=== PATIENT | female | born 1950 | race African-American/Black ===

== ENCOUNTER → 2019-01-15 | Outpatient (CLI) | payer MEDICARE, MEDICAID ==
[2019-01-15 14:46] LABS: FERRITIN 35.2 ng/mL (11.1-264.0)
[2019-01-16 07:42] LABS: HEPATITIS A AB IGM Negative (Negative); HEPATITIS B CORE AB IGM Negative (Negative); HEPATITS B SURFACE ANTIGEN Negative (Negative)
[2019-01-16 10:28] LABS: HEPATITIS C VIRUS ANTIBODY <0.1 s/co ratio (0.0-0.9)
[2019-01-16 14:55] LABS: ANTINUCLEAR ANTIBODIES Negative (Negative)
== END ==
LOC: OD 12:50
PROVIDERS: ATTEND Internal Medicine Gastroenterology
DX: I77.6 Arteritis, unspecified (principal); R71.8 Other abnormality of red blood cells; R76.8 Other specified abnormal immunological findings in serum; R94.5 Abnormal results of liver function studies
CPT/HCPCS: 36415; 80074; 82390; 82728; 83540; 86038; 86256

== ENCOUNTER → 2019-03-01 | Outpatient (CLI) | payer MEDICARE, MEDICAID ==
--- NOTE | 2019-03-01 16:22 | RADIOLOGY REPORT (SQ) ---
EXAM DESCRIPTION: CHEST PA/LATERAL COMPLETED DATE/TIME: 03/01/2019 4:00 pm REASON FOR STUDY: COUGH COMPARISON: None. EXAM PARAMETERS: NUMBER OF VIEWS: two views TECHNIQUE: Digital Frontal and Lateral radiographic views of the chest acquired. RADIATION DOSE: NA LIMITATIONS: none FINDINGS: LUNGS AND PLEURA: Mild hyperinflation. No opacities, masses or pneumothorax. No pleural e ffusion. MEDIASTINUM AND HILAR STRUCTURES: No masses or contour abnormalities. HEART AND VASCULAR STRUCTURES: Heart normal size. No evidence for failure. BONES: No acute findings. HARDWARE: None in the chest. OTHER: No other significant finding. IMPRESSION: No acute findings in the chest. TECHNICAL DOCUMENTATION: JOB ID: [id number] [employer]- All Rights Reserved Reading location - IP/workstation name: [email or web address]
== END ==
LOC: OD 15:44
PROVIDERS: ATTEND Internal Medicine Pulmonary Disease
DX: R05 Cough (principal)
CPT/HCPCS: 71046

== ENCOUNTER 2019-11-15 00:54 | Observation (INO) | payer MEDICARE, MEDICAID ==
[2019-11-15] MEDS ORDERED: LORAZEPAM INJ 2 MG/1 ML VIAL IV ONE (01:02)
--- NOTE | 2019-11-15 01:03 | ER Document Report ---
ED General - General Chief Complaint: Respiratory Distress Stated Complaint: RESPIRATORY DISTRESS Time Seen by Provider: 11/15/19 01:01 TRAVEL OUTSIDE OF THE [place] IN LAST 30 DAYS: No - HPI Onset: Just prior to arrival Onset/Duration: Gradual Severity: Moderate Pain Level: Denies Context: 68 year old female arrives via EMS on CPAP due to cough, wheeze and sob. No fever. Lives in chronic resp failure with 2.5 L O2 all the time. H/O COPD and stopped smoking about a year ago. No known sick contacts. Reportedly tripod at home with Sats in the 70's. No chest pain. Exacerbated by: Denies Relieved by: Denies - Related Data Allergies/Adverse Reactions: fluticasone [From Advair Diskus] Allergy (Verified 11/15/19 01:04) salmeterol [From Advair Diskus] Allergy (Verified 11/15/19 01:04) Past Medical History - Social History Smoking Status: Former Smoker Family History: Reviewed & Not Pertinent Review of Systems - Review of Systems Constitutional: No symptoms reported EENT: No symptoms reported Cardiovascular: No symptoms reported Respiratory: See HPI, Cough, Short of breath. denies: Hurts to breathe, Sputum Gastrointestinal: No symptoms reported Genitourinary: No symptoms reported Female Genitourinary: No symptoms reported Musculoskeletal: No symptoms reported Skin: No symptoms reported Hematologic/Lymphatic: No symptoms reported Neurological/Psychological: No symptoms reported Physical Exam - Vital signs Vitals: Resp Pulse Ox 22 H 100 11/15/19 01:04 11/15/19 01:04 Interpretation: Normal - General General appearance: Appears well, Alert - HEENT Head: Normocephalic, Atraumatic Eyes: Normal Pupils: PERRL - Respiratory Respiratory status: Depressed respirations, Labored Chest status: Nontender Breath sounds: Decreased air movement, Wheezing Chest palpation: Normal - Cardiovascular Rhythm: Regular Heart sounds: Normal auscultation Murmur: No - Abdominal Inspection: Normal Distension: No distension Bowel sounds: Normal Tenderness: Nontender Organomegaly: No organomegaly - Back Back: Normal, Nontender - Extremities General upper extremity: Normal inspection, Nontender, Normal color, Normal ROM, Normal temperature General lower extremity: Normal inspection, Nontender, Normal color, Normal ROM, Normal temperature, Normal weight bearing. No: Timothy's sign - Neurological Neuro grossly intact: Yes Cognition: Normal Orientation: AAOx4 [place] Coma Scale Eye Opening: Spontaneous Ivon Coma Scale Verbal: Oriented Ivon Coma Scale Motor: Obeys Commands Donahue Coma Scale Total: 15 Speech: Normal Motor strength normal: LUE, RUE, LLE, RLE Sensory: Normal - Psychological Associated symptoms: Normal affect, Normal mood - Skin Skin Temperature: Warm Skin Moisture: Dry Skin Color: Normal Course - Vital Signs Vital signs: Temp Pulse Resp BP Pulse Ox 97.4 F 79 16 132/54 H 94 11/15/19 05:21 11/15/19 05:21 11/15/19 05:21 11/15/19 05:21 11/15/19 05:21 - Laboratory Result Diagrams: 11/15/19 01:05 11/15/19 01:05 Laboratory results interpreted by me: 11/15/19 11/15/19 11/15/19 01:05 01:05 01:05 RDW 15.0 H Carbonic Acid ABG pH ABG pCO2 ABG pO2 ABG HCO3 ABG Total CO2 ABG O2 Saturation Creatinine 1.34 H Est GFR ( Amer) 47 L Est GFR (MDRD) Non-Af 39 L Glucose 162 H Magnesium 2.8 H AST 51 H Urine Protein Urine Blood 11/15/19 11/15/19 01:43 03:10 RDW Carbonic Acid 1.75 H ABG pH 7.30 L ABG pCO2 58.3 H ABG pO2 185.6 H ABG HCO3 28.0 H ABG Total CO2 29.8 H ABG O2 Saturation 99.1 H Creatinine Est GFR ( Amer) Est GFR (MDRD) Non-Af Glucose Magnesium AST Urine Protein 100 H Urine Blood SMALL H - Diagnostic Test Radiology reviewed: Image reviewed, Reports reviewed - EKG Interpretation by Me EKG shows normal: Sinus rhythm Rate: Normal Rhythm: NSR - NSR NL [place] [address] elevation or depression my interpretation. Critical Care Note - Critical Care Note Total time excluding time spent on procedures (mins): 30 Discharge - Discharge Clinical Impression: Acute respiratory acidosis Respiratory failure Qualifiers: Chronicity: acute Respiratory failure complication: hypoxia Qualified Code(s): J96.01 - Acute respiratory failure with hypoxia Condition: Fair Disposition: ADMITTED INPATIENT Admitting Provider: Gio (Hospitalist) Unit Admitted: Telemetry
[2019-11-15 01:19] LABS: ABSOLUTE BASOPHILS # (AUTO) 0.1 10^3/uL (0.0-0.2); ABSOLUTE EOSINOPHILS # (AUTO) 0.3 10^3/uL (0.0-0.6); ABSOLUTE LYMPHOCYTES (AUTO) 3.2 10^3/uL (0.5-4.7); ABSOLUTE MONOCYTES (AUTO) 0.6 10^3/uL (0.1-1.4); BASOPHILS % (AUTO) 1.6 % (0-2); EOSINOPHILS % (AUTO) 3.3 % (0-6); HEMATOCRIT 39.8 % (36.0-47.0); HEMOGLOBIN 13.3 g/dL (12.0-15.5); LYMPHOCYTES % (AUTO) 38.9 % (13-45); MEAN CORPUSCULAR HEMOGLOBIN 27.2 pg (27.0-33.4); MEAN CORPUSCULAR HGB CONC 33.3 g/dL (32.0-36.0); MEAN CORPUSCULAR VOLUME 82 fl (80-97); MONOCYTES % (AUTO) 7.7 % (3-13); PLATELET COUNT 312 10^3/uL (150-450); RED BLOOD COUNT 4.88 10^6/uL (3.72-5.28); SEGMENTED NEUTROPHILS % (AUTO) 48.5 % (42-78); TOTAL CELLS COUNTED % (AUTO) 100 %; WHITE BLOOD COUNT 8.3 10^3/uL (4.0-10.5)
[2019-11-15 01:38] LABS: TROPONIN I 0.015 ng/mL
[2019-11-15 01:44] LABS: ALBUMIN 4.8 g/dL (3.5-5.0); ALKALINE PHOSPHATASE 78 U/L (38-126); ANION GAP 11 (5-19); ASPARTATE AMINO TRANSFERASE 51 U/L (14-36); BILIRUBIN,DIRECT 0.1 mg/dL (0.0-0.4); BILIRUBIN,TOTAL 0.7 mg/dL (0.2-1.3); BLOOD UREA NITROGEN 18 mg/dL (7-20); CALCIUM 9.4 mg/dL (8.4-10.2); CARBON DIOXIDE 30 mmol/L (22-30); CHLORIDE 102 mmol/L (98-107); GLUCOSE 162 mg/dL (75-110); POTASSIUM 4.1 mmol/L (3.6-5.0); TOTAL PROTEIN 7.8 g/dL (6.3-8.2)
[2019-11-15] MEDS: ASPIRIN 81 MG TABLET, CHEWABLE PO ONE ×2 (01:44→02:11)
[2019-11-15 01:54] LABS: APPEARANCE,URINE CLOUDY; BILIRUBIN,URINE NEGATIVE (NEGATIVE); COLOR,URINE YELLOW; GLUCOSE, URINE NEGATIVE (NEGATIVE); KETONES,URINE NEGATIVE (NEGATIVE); LEUKOCYTE ESTERASE,URINE NEGATIVE (NEGATIVE); NITRITE,URINE NEGATIVE (NEGATIVE); PROTEIN,URINE 100 mg/dL (NEGATIVE); URINE SPECIFIC GRAVITY 1.011; UROBILINOGEN,URINE NEGATIVE mg/dL (<2.0)
--- NOTE | 2019-11-15 01:54 | RADIOLOGY REPORT (SQ) ---
EXAM DESCRIPTION: X-RAY CHEST- One View CLINICAL HISTORY: Shortness of breath COMPARISON: March 01, 2019 TECHNIQUE: Single view of the chest. FINDINGS: There are overlying EKG leads. There are no discrete air space infiltrates, pneumothoraces or pleural effusions. The pulmonary vascularity is normal. The cardiomediastinal silhouette is normal in size. Atherosclerotic vascular calcifications are present. Osseous structures are stable in appearance. IMPRESSION: There are no acute lung parenchymal findings.
[2019-11-15] MEDS ORDERED: CYCLOBENZAPRINE HCL 10 MG TABLET PO ONE (02:01)
[2019-11-15 03:39] LABS: ARTERIAL BLOOD BASE EXCESS 0.5 mmol/L; ARTERIAL BLOOD H2CO3 1.75 mmol/L (1.05-1.35); ARTERIAL BLOOD O2 SATURATION 99.1 % (94-98); ARTERIAL BLOOD PCO2 58.3 mmHg (35-45); ARTERIAL BLOOD PO2 185.6 mmHg (80-100); ARTERIAL BLOOD TOTAL CO2 29.8 mmol/L (21-25)
[2019-11-15 03:40] LABS: ARTERIAL BLOOD FIO2 45%
[2019-11-15] MEDS ORDERED: ACETAMINOPHEN 325 MG TABLET PO PRN (03:44)
[2019-11-15] MEDS ORDERED: HYDRALAZINE HCL INJ/PF 20 MG/1 ML SDV IV PRN (03:44)
[2019-11-15] MEDS ORDERED: IPRATROPIUM/ALBUTEROL 0.5-2.5 MG/3 ML AMPUL NEB PRN (03:44)
[2019-11-15] MEDS ORDERED: AZITHROMYCIN INJ 500 MG VIAL IV PRN (03:51)
[2019-11-15 04:12] LABS: URINE AMPHETAMINES SCREEN NEGATIVE; URINE BARBITURATES SCREEN NEGATIVE; URINE BENZODIAZEPINES SCREEN NEGATIVE; URINE COCAINE SCREEN NEGATIVE; URINE MARIJUANA (THC) SCREEN NEGATIVE; URINE METHADONE SCREEN NEGATIVE; URINE PHENCYCLIDINE SCREEN NEGATIVE
[2019-11-15] MEDS: PREDNISONE 20 MG TABLET PO SCH ×3 (04:25→17:13)
[2019-11-15] MEDS: FLUTICASONE NASAL SPRAY 50 MCG/SPRY 120 SPRAY/16 GM NASL SCH ×3 (04:25→21:10)
[2019-11-15] MEDS ORDERED: AZITHROMYCIN INJ 500 MG VIAL IV ONE (05:30)
[2019-11-15] MEDS: HEPARIN SOD (PORCINE) 5,000 UNIT/ML 1 ML VIAL SUBCUT SCH ×3 (06:23→21:10)
[2019-11-15] MEDS: AZITHROMYCIN 500 MG in DEXTROSE 5%-WATER 250 ML IV SCH (06:24)
--- NOTE | 2019-11-15 06:28 | PDOC H&P ---
History of Present Illness Admission Date/PCP: 11/15/19 04:19 RM WARNER MD Patient complains of: Shortness of breath History of Present Illness: GODLIE COATS is a 68 year old female with a past medical history of morbid obesity, obstructive sleep apnea, anxiety, chronic pain and oxygen dependent COPD. She presents with several hours of shortness of breath and nonproductive cough prompting call to EMS finding of pulse ox of 70% she is placed on BiPAP and brought to the emergency room for evaluation where she is found to have pulse oximetry of 100%, ABG revealing mild hypercapnia, tachypnea, severe anxiety requiring Ativan. She is referred to the hospitalist for admission. Patient persists with anxious affect, denies CPAP noncompliance, recent change in medications or fever. She speaks fluently in full sentences without cough, wheeze with nasal cannula oxygen. Past Medical History Cardiac Medical History: Reports: Hypertension Pulmonary Medical History: Reports: Chronic Obstructive Pulmonary Disease (COPD) Psychiatric Medical History: Reports: General Anxiety Disorder Past Surgical History Past Surgical History: Reports: Cholecystectomy Social History Information Source: Patient Smoking Status: Former Smoker Electronic Cigarette use?: No Number of Years Smokin Last Time Smoked: 11/15/2018 Frequency of Alcohol Use: None Drugs: None - Advance Directive Resuscitation Status: Full Code Family History Family History: Hypertension Parental Family History Reviewed: Yes Children Family History Reviewed: Yes Sibling(s) Family History Reviewed.: Yes Medication/Allergy Allergies/Adverse Reactions: fluticasone [From Advair Diskus] Allergy (Verified 11/15/19 01:04) salmeterol [From Advair Diskus] Allergy (Verified 11/15/19 01:04) Review of Systems Constitutional: ABSENT: chills, fever(s), headache(s), weight gain, weight loss Eyes: ABSENT: visual disturbances Ears: ABSENT: hearing changes Cardiovascular: ABSENT: chest pain, dyspnea on exertion, edema, orthropnea, palpitations Respiratory: ABSENT: cough, hemoptysis Gastrointestinal: ABSENT: abdominal pain, constipation, diarrhea, hematemesis, hematochezia, nausea, vomiting Genitourinary: ABSENT: dysuria, hematuria Musculoskeletal: ABSENT: joint swelling Integumentary: ABSENT: rash, wounds Neurological: ABSENT: abnormal gait, abnormal speech, confusion, dizziness, focal weakness, syncope Psychiatric: ABSENT: anxiety, depression, homidical ideation, suicidal ideation Endocrine: ABSENT: cold intolerance, heat intolerance, polydipsia, polyuria Hematologic/Lymphatic: ABSENT: easy bleeding, easy bruising Physical Exam Vital Signs: Temp Pulse Resp BP Pulse Ox 97.4 F 79 16 132/54 H 94 11/15/19 05:21 11/15/19 05:21 11/15/19 05:21 11/15/19 05:21 11/15/19 05:21 Intake & Output 11/13/19 11/14/19 11/15/19 11:59 11:59 11:59 Weight 98 kg General appearance: PRESENT: no acute distress, well-developed, well-nourished Head exam: PRESENT: atraumatic, normocephalic Eye exam: PRESENT: conjunctiva pink, EOMI, PERRLA. ABSENT: scleral icterus Ear exam: PRESENT: normal external ear exam Mouth exam: PRESENT: moist, tongue midline Neck exam: ABSENT: carotid bruit, JVD, lymphadenopathy, thyromegaly Respiratory exam: PRESENT: clear to auscultation kimberlyn. ABSENT: rales, rhonchi, wheezes Cardiovascular exam: PRESENT: RRR. ABSENT: diastolic murmur, rubs, systolic murmur Pulses: PRESENT: normal dorsalis pedis pul Vascular exam: PRESENT: normal capillary refill GI/Abdominal exam: PRESENT: normal bowel sounds, soft. ABSENT: distended, gu arding, mass, organolmegaly, rebound, tenderness Rectal exam: PRESENT: deferred Extremities exam: PRESENT: full ROM. ABSENT: calf tenderness, clubbing, pedal edema Neurological exam: PRESENT: alert, awake, oriented to person, oriented to place, oriented to time, oriented to situation, CN II-XII grossly intact. ABSENT: mot or sensory deficit Psychiatric exam: PRESENT: appropriate affect, normal mood. ABSENT: homicidal ideation, suicidal ideation Skin exam: PRESENT: dry, intact, warm. ABSENT: cyanosis, rash Results Laboratory Results: 11/15/19 01:05 11/15/19 01:05 11/15/19 11/15/19 11/15/19 01:05 01:05 01:05 WBC 8.3 RBC 4.88 Hgb 13.3 Hct 39.8 MCV 82 MCH 27.2 MCHC 33.3 RDW 15.0 H Plt Count 312 Seg Neutrophils % 48.5 Carbonic Acid HCO3/H2CO3 Ratio ABG pH ABG pCO2 ABG pO2 ABG HCO3 ABG O2 Saturation ABG Base Excess FiO2 Sodium 143.2 Potassium 4.1 Chloride 102 Carbon Dioxide 30 Anion Gap 11 BUN 18 Creatinine 1.34 H Est GFR ( Amer) 47 L Glucose 162 H Lactic Acid Calcium 9.4 Magnesium 2.8 H Total Bilirubin 0.7 AST 51 H Alkaline Phosphatase 78 Total Protein 7.8 Albumin 4.8 Urine Color Urine Appearance Urine pH Ur Specific [place] Urine Protein Urine Glucose (UA) Urine Ketones Urine Blood Urine Nitrite Ur Leukocyte Esterase Urine WBC (Auto) Urine RBC (Auto) 11/15/19 11/15/19 11/15/19 01:28 01:43 03:10 WBC RBC Hgb Hct MCV MCH MCHC RDW Plt Count Seg Neutrophils % Carbonic Acid 1.75 H HCO3/H2CO3 Ratio 16:1 ABG pH 7.30 L ABG pCO2 58.3 H ABG pO2 185.6 H ABG HCO3 28.0 H ABG O2 Saturation 99.1 H ABG Base Excess 0.5 FiO2 45% Sodium Potassium Chloride Carbon Dioxide Anion Gap BUN Creatinine Est GFR ( Amer) Glucose Lactic Acid 0.7 Calcium Magnesium Total Bilirubin AST Alkaline Phosphatase Total Protein Albumin Urine Color YELLOW Urine Appearance CLOUDY Urine pH 6.0 Ur Specific [place] 1.011 Urine Protein 100 H Urine Glucose (UA) NEGATIVE Urine Ketones NEGATIVE Urine Blood SMALL H Urine Nitrite NEGATIVE Ur Leukocyte Esterase NEGATIVE Urine WBC (Auto) 4 Urine RBC (Auto) 3 11/15/19 01:05 Troponin I 0.015 NT-Pro-B Natriuret Pep 57 Impressions: Chest X-Ray 11/15/19 01:02 IMPRESSION: There are no acute lung parenchymal findings. Assessment and Plan - Diagnosis (1) Acute respiratory acidosis Is this a current diagnosis for this admission?: Yes Plan: Suboptimal compliance with CPAP versus excessive sedation from Zanaflex. BiPAP ordered, counseling performed, limit Zanaflex (2) Hypercapnic respiratory failure Is this a current diagnosis for this admission?: Yes Plan: Secondary to #1, complicated by morbid obesity and chronic pain (3) Chronic pain Is this a current diagnosis for this admission?: Yes Plan: Limit narcotics or sedating agents secondary to #1 (4) Obstructive sleep apnea Is this a current diagnosis for this admission?: Yes Plan: BiPAP and education - Time Time Spent with patient: 25-34 minutes - Inpatient Certification Medical Necessity: Need Close Monitoring Due to Risk of Patient Decompensation
[2019-11-15] MEDS: IPRATROPIUM/ALBUTEROL 0.5-2.5 MG/3 ML AMPUL NEB SCH ×2 (07:54→15:58)
--- NOTE | 2019-11-15 09:17 | EKG REPORT ---
SEVERITY:- NORMAL ECG - SINUS RHYTHM : Confirmed by: Pablo Graham 15-Nov-2019 09:17:10
[2019-11-15] MEDS ORDERED: CARBOXYMETHYLCELLULOSE SOD 0.5% 0.4 ML DROPERETTE OU PRN (15:07)
[2019-11-15] MEDS: MONTELUKAST SODIUM 10 MG TABLET PO SCH (21:47)
[2019-11-15] MEDS ORDERED: TIZANIDINE HCL 4 MG TABLET PO SCH (22:00)
[2019-11-16] MEDS: IPRATROPIUM/ALBUTEROL 0.5-2.5 MG/3 ML AMPUL NEB SCH ×4 (00:10→23:56)
[2019-11-16 05:02] LABS: ABSOLUTE BASOPHILS # (AUTO) 0.1 10^3/uL (0.0-0.2); ABSOLUTE LYMPHOCYTES (AUTO) 1.1 10^3/uL (0.5-4.7); ABSOLUTE MONOCYTES (AUTO) 0.4 10^3/uL (0.1-1.4); ABSOLUTE NEUT (AUTO) 8.7 10^3/uL (1.7-8.2); BASOPHILS % (AUTO) 0.6 % (0-2); EOSINOPHILS % (AUTO) 0.1 % (0-6); HEMATOCRIT 35.2 % (36.0-47.0); HEMOGLOBIN 11.9 g/dL (12.0-15.5); LYMPHOCYTES % (AUTO) 10.6 % (13-45); MEAN CORPUSCULAR HEMOGLOBIN 27.4 pg (27.0-33.4); MEAN CORPUSCULAR HGB CONC 33.9 g/dL (32.0-36.0); MEAN CORPUSCULAR VOLUME 81 fl (80-97); MONOCYTES % (AUTO) 4.3 % (3-13); PLATELET COUNT 251 10^3/uL (150-450); RED BLOOD COUNT 4.35 10^6/uL (3.72-5.28); RED CELL DISTRIBUTION WIDTH 14.6 % (11.5-14.0); SEGMENTED NEUTROPHILS % (AUTO) 84.4 % (42-78); TOTAL CELLS COUNTED % (AUTO) 100 %; WHITE BLOOD COUNT 10.3 10^3/uL (4.0-10.5)
[2019-11-16] MEDS: HEPARIN SOD (PORCINE) 5,000 UNIT/ML 1 ML VIAL SUBCUT SCH ×3 (05:03→22:34)
[2019-11-16 05:16] LABS: ANION GAP 9 (5-19); BLOOD UREA NITROGEN 21 mg/dL (7-20); CALCIUM 9.1 mg/dL (8.4-10.2); CARBON DIOXIDE 27 mmol/L (22-30); CHLORIDE 102 mmol/L (98-107); GLUCOSE 133 mg/dL (75-110); POTASSIUM 4.9 mmol/L (3.6-5.0)
[2019-11-16] MEDS: AZITHROMYCIN 500 MG in DEXTROSE 5%-WATER 250 ML IV SCH (05:42)
[2019-11-16] MEDS: PREDNISONE 20 MG TABLET PO SCH ×2 (09:30→17:17)
[2019-11-16] MEDS: CHOLECALCIFEROL (D3) 1,000 UNIT (25 MCG) TABLET PO SCH (09:30)
[2019-11-16] MEDS: TIZANIDINE HCL 4 MG TABLET PO SCH (09:31)
[2019-11-16] MEDS: FLUTICASONE NASAL SPRAY 50 MCG/SPRY 120 SPRAY/16 GM NASL SCH ×2 (09:32→22:36)
[2019-11-16] MEDS: LISINOPRIL 10 MG TABLET PO SCH (09:34)
[2019-11-16] MEDS: AMLODIPINE BESYLATE 10 MG TABLET PO SCH (09:34)
[2019-11-16] MEDS: FLUTICASONE/UMECLIDIN/VILANTER 100-62.5-25 MCG/DOSE IH SCH (09:34)
--- NOTE | 2019-11-16 12:41 | PDOC DISCHARGE SUMMARY ---
Impression - Admit/DC Date/PCP Admission Date/Primary Care Provider: 11/15/19 04:19 RM BURDICK MD Discharge Date: 11/16/19 - Discharge Diagnosis (1) Acute on chronic respiratory failure with hypoxia and hypercapnia Is this a current diagnosis for this admission?: Yes (2) COPD exacerbation Is this a current diagnosis for this admission?: Yes (3) Sinus bradycardia Is this a current diagnosis for this admission?: Yes (4) Acute respiratory acidosis Is this a current diagnosis for this admission?: Yes (5) Obstructive sleep apnea Is this a current diagnosis for this admission?: Yes - Assessment Summary: Patient presented with shortness of breath. On evaluation in the ER, patient was noted to have stable vitals but with active wheezing. Blood gas revealed some respiratory acidosis with CO2 retention. Patient was subsequently admitted for COPD exacerbation with acute on chronic hypercapnic respiratory failure. Chest x-ray was clear without any evidence of infiltrates. Patient was given a dose of azithromycin. Patient was placed on steroids and frequent nebulizer treatments. Patient has stopped wheezing since yesterday. Patient also slept with BiPAP on. Of note patient uses about 3.5 L nasal cannula at home and a trilogy machine when she sleeps. Patient was ambulated this morning with SPO2 on 2 to 3 L maintaining in the mid 90s. Patient was able to ambulate a good distance without respiratory limitations. Patient is being discharged in stable conditions with 3 days of prednisone and to f/up with her obiee obia solution architect Dr Burdick. Patient has all her inhalers at home as well as oxygen and trilogy machine. Patient was also noted to be bradycardic last night into this morning with pulse going as low as 40s. This was after receiving her nightly dose of Zanaflex 8 mg which have recommended discontinuation on discharge. EKG showed sinus bradycardia without AV block. Patient was ambulated this morning with heart rates responding nicely into the 70s to 80s. Patient was asymptomatic in regards to that. - Additional Information Resuscitation Status: Full Code Discharge Diet: As Tolerated Referrals: RM BURDICK MD [Primary Care Provider] - Follow up as needed Prescriptions: Prednisone [Deltasone 20 mg Tablet] 20 mg PO BID #5 tablet Home Medications: Albuterol Sulfate [Albuterol Sulfate Hfa] 2 puff IH Q6HP PRN 11/15/19 Amlodipine Besylate [Norvasc 10 mg Tablet] 10 mg PO DAILY 11/15/19 Arformoterol Tartrate [Brovana Inhalation Solution 15 mcg/2 mL] 15 mcg NEB RTQ12 11/15/19 Aspirin/Caffeine [Bc Powder Packet] 1 pkt PO Q12HP PRN 11/15/19 Azelastine/Fluticasone [Dymista Nasal [place]] 1 spray NAREB DAILY 11/15/19 Budesonide [Pulmicort Neb 0.5 mg/2 ml Ampul] 0.5 mg NEB RTQ12 11/15/19 Carboxymethylcellulose Sodium [Artificial Tears] 1 drop OU QIDP PRN 11/15/19 Cholecalciferol (Vitamin D3) [Vitamin D3 1000 Unit Tablet] 5,000 unit PO DAILY 11/15/19 Diclofenac Sodium 4 gm TP QIDP PRN 11/15/19 Ipratropium [place] [Atrovent 0.02% Neb 0.5 mg/2.5 ml Ampul] 0.5 mg NEB RTDAILY 11/15/19 Lisinopril 20 mg PO DAILY 11/15/19 Montelukast Sodium [Singulair 10 mg Tablet] 10 mg PO QHS 11/15/19 Pravastatin Sodium 40 mg PO QHS 11/15/19 Revefenacin [Yupelri] 1 vial NEB RTDAILY 11/15/19 Tizanidine HCl [Zanaflex] 2 mg PO QAM 11/15/19 Prednisone [Deltasone 20 mg Tablet] 20 mg PO BID #5 tablet 11/16/19 History of Present Illiness History of Present Illness: GOLDIE COATS is a 68 year old female with a past medical history of morbid obesity, obstructive sleep apnea, anxiety, chronic pain and oxygen dependent COPD. She presents with several hours of shortness of breath and nonproductive cough prompting call to EMS finding of pulse ox of 70% she is placed on BiPAP and brought to the emergency room for evaluation where she is found to have pulse oximetry of 100%, ABG revealing mild hypercapnia, tachypnea, severe anxiety requiring Ativan. She is referred to the hospitalist for admission. Patient persists with anxious affect, denies CPAP noncompliance, recent change in medications or fever. She speaks fluently in full sentences without cough, wheeze with nasal cannula oxygen. Physical Exam Vital Signs: Temp Pulse Resp BP Pulse Ox 97.1 F 49 L 17 113/48 L 100 11/16/19 08:00 11/16/19 08:00 11/16/19 08:00 11/16/19 08:00 11/16/19 08:00 Intake & Output 11/15/19 11/16/19 11/17/19 06:59 06:59 06:59 Intake Total 110 1726 356 Output Total 850 Balance 110 876 356 Weight 98 kg 99.9 kg General appearance: PRESENT: no acute distress, cooperative Neck exam: ABSENT: JVD Respiratory exam: PRESENT: clear to auscultation [place], decreased breath sounds, unlabored. ABSENT: tachypnea, wheezes Cardiovascular exam: PRESENT: bradycardia, +S1, +S2. ABSENT: tachycardia GI/Abdominal exam: PRESENT: normal bowel sounds, soft. ABSENT: rebound, rigid, tenderness Neurological exam: PRESENT: alert, awake Results Laboratory Results: WBC 10.3 10^3/uL (4.0-10.5) 11/16/19 04:13 RBC 4.35 10^6/uL (3.72-5.28) 11/16/19 04:13 Hgb 11.9 g/dL (12.0-15.5) L 11/16/19 04:13 Hct 35.2 % (36.0-47.0) L 11/16/19 04:13 MCV 81 fl (80-97) 11/16/19 04:13 MCH 27.4 pg (27.0-33.4) 11/16/19 04:13 MCHC 33.9 g/dL (32.0-36.0) 11/16/19 04:13 RDW 14.6 % (11.5-14.0) H 11/16/19 04:13 Plt Count 251 10^3/uL (150-450) 11/16/19 04:13 Lymph % (Auto) 10.6 % (13-45) L 11/16/19 04:13 [place] % (Auto) 4.3 % (3-13) 11/16/19 04:13 Eos % (Auto) 0.1 % (0-6) 11/16/19 04:13 Baso % (Auto) 0.6 % (0-2) 11/16/19 04:13 Absolute Neuts (auto) 8.7 10^3/uL (1.7-8.2) H 11/16/19 04:13 Absolute Lymphs (auto) 1.1 10^3/uL (0.5-4.7) 11/16/19 04:13 Absolute Monos (auto) 0.4 10^3/uL (0.1-1.4) 11/16/19 04:13 Absolute Eos (auto) 0.0 10^3/uL (0.0-0.6) 11/16/19 04:13 Absolute Basos (auto) 0.1 10^3/uL (0.0-0.2) 11/16/19 04:13 Seg Neutrophils % 84.4 % (42-78) H 11/16/19 04:13 Carbonic Acid 1.75 mmol/L (1.05-1.35) H 11/15/19 03:10 HCO3/H2CO3 Ratio 16:1 11/15/19 03:10 ABG pH 7.30 (7.35-7.45) L 11/15/19 03:10 ABG pCO2 58.3 mmHg (35-45) H 11/15/19 03:10 ABG pO2 185.6 mmHg (80-100) H 11/15/19 03:10 ABG HCO3 28.0 mmol/L (20-24) H 11/15/19 03:10 ABG Total CO2 29.8 mmol/L (21-25) H 11/15/19 03:10 ABG O2 Saturation 99.1 % (94-98) H 11/15/19 03:10 ABG Base Excess 0.5 mmol/L 11/15/19 03:10 FiO2 45% 11/15/19 03:10 Sodium 138.1 mmol/L (137-145) 11/16/19 04:13 Potassium 4.9 mmol/L (3.6-5.0) 11/16/19 04:13 Chloride 102 mmol/L (98-107) 11/16/19 04:13 Carbon Dioxide 27 mmol/L (22-30) 11/16/19 04:13 Anion Gap 9 (5-19) 11/16/19 04:13 BUN 21 mg/dL (7-20) H 11/16/19 04:13 Creatinine 1.03 mg/dL (0.52-1.25) 11/16/19 04:13 Est GFR ( Amer) > 60 (>60) 11/16/19 04:13 Est GFR (MDRD) Non-Af 53 (>60) L 11/16/19 04:13 Glucose 133 mg/dL (75-110) H 11/16/19 04:13 Lactic Acid 0.7 mmol/L (0.7-2.1) 11/15/19 01:28 Calcium 9.1 mg/dL (8.4-10.2) 11/16/19 04:13 Magnesium 2.8 mg/dL (1.6-2.3) H 11/15/19 01:05 Total Bilirubin 0.7 mg/dL (0.2-1.3) 11/15/19 01:05 Direct Bilirubin 0.1 mg/dL (0.0-0.4) 11/15/19 01:05 Neonat Total Bilirubin Not Reportable 11/15/19 01:05 Neonat Direct Bilirubin Not Reportable 11/15/19 01:05 Neonat Indirect Bili Not Reportable 11/15/19 01:05 AST 51 U/L (14-36) H 11/15/19 01:05 ALT 51 U/L (<35) 11/15/19 01:05 Alkaline Phosphatase 78 U/L (38-126) 11/15/19 01:05 Troponin I 0.015 ng/mL 11/15/19 01:05 NT-Pro-B Natriuret Pep 57 pg/mL (<125) 11/15/19 01:05 Total Protein 7.8 g/dL (6.3-8.2) 11/15/19 01:05 Albumin 4.8 g/dL (3.5-5.0) 11/15/19 01:05 Urine Color YELLOW 11/15/19 01:43 Urine Appearance CLOUDY 11/15/19 01:43 Urine pH 6.0 (5.0-9.0) 11/15/19 01:43 Ur Specific [place] 1.011 11/15/19 01:43 Urine Protein 100 mg/dL (NEGATIVE) H 11/15/19 01:43 Urine Glucose (UA) NEGATIVE mg/dL (NEGATIVE) 11/15/19 01:43 Urine Ketones NEGATIVE mg/dL (NEGATIVE) 11/15/19 01:43 Urine Blood SMALL (NEGATIVE) H 11/15/19 01:43 Urine Nitrite NEGATIVE (NEGATIVE) 11/15/19 01:43 Urine Bilirubin NEGATIVE (NEGATIVE) 11/15/19 01:43 Urine Urobilinogen NEGATIVE mg/dL (<2.0) 11/15/19 01:43 Ur Leukocyte Esterase NEGATIVE (NEGATIVE) 11/15/19 01:43 Urine WBC (Auto) 4 /HPF 11/15/19 01:43 Urine RBC (Auto) 3 /HPF 11/15/19 01:43 Urine Bacteria (Auto) TRACE /HPF 11/15/19 01:43 Squamous Epi Cells Auto 9 /HPF 11/15/19 01:43 Urine Mucus (Auto) RARE /LPF 11/15/19 01:43 Urine Ascorbic Acid NEGATIVE (NEGATIVE) 11/15/19 01:43 Urine Opiates Screen NEGATIVE 11/15/19 01:43 Urine Methadone Screen NEGATIVE 11/15/19 01:43 Ur Barbiturates Screen NEGATIVE 11/15/19 01:43 Ur Phencyclidine Scrn NEGATIVE 11/15/19 01:43 Ur Amphetamines Screen NEGATIVE 11/15/19 01:43 U Benzodiazepines Scrn NEGATIVE 11/15/19 01:43 Urine Cocaine Screen NEGATIVE 11/15/19 01:43 U Marijuana (THC) Screen NEGATIVE 11/15/19 01:43 11/15/19 01:05 Troponin I 0.015 NT-Pro-B Natriuret Pep 57 Impressions: Chest X-Ray 11/15/19 01:02 IMPRESSION: There are no acute lung parenchymal findings. Plan Time Spent: Less than 30 Minutes Stroke Is this a Stroke Patient?: No Acute Heart Failure - Is this a Heart Failure Patient?: No
--- NOTE | 2019-11-16 13:01 | EKG REPORT ---
SEVERITY:- NORMAL ECG - SINUS RHYTHM : Confirmed by: Pablo Graham 16-Nov-2019 13:00:59
--- NOTE | 2019-11-16 14:15 | Progress Note ---
Provider Note Provider Note: Patient had ambulated without much difficulty. However after discharge order was placed and discharge summary was already done, patient notified staff that she felt very dyspneic when she got up to brush her teeth and is concerned about going home because of this. I went and saw patient and discussed and evaluated her with daughter at bedside. Of note patient states that she feels much better after going back on the BiPAP. I discussed with patient and patient told me that she paces herself when at home whenever she she feels really short of breath she goes back on the trilogy machine until her breathing improved and then is able to get back off it. I explained to patient that she has pretty advanced COPD that she would need to continue pacing himself and can continue to have the same treatments at home with a trilogy which is superior to a BiPAP. However I will hold off on discharging today and give patient another day of frequent nebulizer treatments and steroids to see if any improvement in COPD exacerbation the patient.
[2019-11-16] MEDS ORDERED: TIZANIDINE HCL 4 MG TABLET PO SCH (22:00)
[2019-11-16] MEDS: MONTELUKAST SODIUM 10 MG TABLET PO SCH (22:36)
[2019-11-17] MEDS: HEPARIN SOD (PORCINE) 5,000 UNIT/ML 1 ML VIAL SUBCUT SCH (05:15)
[2019-11-17] MEDS ORDERED: AZITHROMYCIN 250 MG TABLET PO SCH (08:00)
[2019-11-17 08:21] VITALS: BP 139/67
[2019-11-17] MEDS: IPRATROPIUM/ALBUTEROL 0.5-2.5 MG/3 ML AMPUL NEB SCH (08:35)
[2019-11-17] MEDS: CHOLECALCIFEROL (D3) 1,000 UNIT (25 MCG) TABLET PO SCH (09:14)
[2019-11-17] MEDS: TIZANIDINE HCL 4 MG TABLET PO SCH (09:14)
[2019-11-17] MEDS: AMLODIPINE BESYLATE 10 MG TABLET PO SCH (09:14)
[2019-11-17] MEDS: LISINOPRIL 10 MG TABLET PO SCH (09:14)
[2019-11-17] MEDS: FLUTICASONE/UMECLIDIN/VILANTER 100-62.5-25 MCG/DOSE IH SCH (09:15)
[2019-11-17] MEDS: FLUTICASONE NASAL SPRAY 50 MCG/SPRY 120 SPRAY/16 GM NASL SCH (09:15)
[2019-11-17] MEDS: PREDNISONE 20 MG TABLET PO SCH (09:15)
--- NOTE | 2019-11-17 12:02 | Progress Note ---
Provider Note Provider Note: Patient is doing well today. States she ambulated to the bathroom without much difficulty. She has she feels ready to go home today. Vital signs are stable Lung sounds clear bilaterally without wheezing. No rales noted. Decreased breath sounds. Acute on chronic respiratory failure with hypoxia and hypercapnia secondary to COPD exacerbation-continue nebs. Continue trilogy machine at home. Steroids for a few days. Patient stable for discharge today. Patient agreeable to being discharged today. She will follow-up with Dr. Diomedes Burdick with her primary grease man.
== END 2019-11-17 13:55 | disposition home or self-care (01) ==
LOC: ER 00:54 → INTOOBSV 04:19 → EH 04:19 → 4N 05:10
PROVIDERS: ADMIT Internal Medicine; ATTEND Internal Medicine
DX: J44.1 Chronic obstructive pulmonary disease with (acute) exacerbation (principal); J96.22 Acute and chronic respiratory failure with hypercapnia; J96.21 Acute and chronic respiratory failure with hypoxia; R00.1 Bradycardia, unspecified; E87.2 Acidosis; G47.33 Obstructive sleep apnea (adult) (pediatric); F41.1 Generalized anxiety disorder; G89.29 Other chronic pain; I10 Essential (primary) hypertension; E66.01 Morbid (severe) obesity due to excess calories; Z99.81 Dependence on supplemental oxygen; Z79.899 Other long term (current) drug therapy; Z87.891 Personal history of nicotine dependence; Z82.49 Family history of ischemic heart disease and other diseases of the circulatory system
CPT/HCPCS: 93005 ×2; 99291; 96374; 36415 ×2; 82803; 83605; 83735; 85025 ×2; 80048; 80053; 81001; 84484; 80307; 83880; 71045; 94799; 93010 ×2; 94660 ×3; 94667; 94668; 94640 ×3; A9270 ×19; J2060; J3490 ×3; J7060 ×2; J0456 ×2; G0378; J7512; J7620